=== PATIENT | female | born 1970 | race Caucasian/White ===

== ENCOUNTER 2017-02-09 11:00 | Emergency (ER) | payer OTHER ==
--- NOTE | ~2017-02-09 | CR72 ---
[facility] A Service of [facility] RADIOLOGY TEXT RESULTS PATIENT: RENA LOPEZ LOCATION: [facility] : 70 UNIT #: [id number] AGE: [address]: Gisell Garcia MD SEX: F ORDER DR: [id number] [facility] [address] [place], [place] [address] [id number] E MR#: [id number] Acc #: [id number] NAME: RENA LOPEZ : 1970 SEX: F STUDY DATE/TIME: 02/09/2017 15:40 UNIT: [facility] ROOM: STUDY DESCRIPTION: CR Chest Single View Portable Attending Physician: Gisell Garcia M.D. Ordering Physician: Johnathon Candelario D.O. Primary Care Physician: Gwendolyn Segundo A.P.R.N. MEDICAL IMAGING REPORT This report is preliminary unless electronic signature is present EXAM Portable chest INDICTION Shortness of air for the past 3 days. PROCEDURE Frontal view chest COMPARISON None FINDINGS Moderate cardiomegaly. No dense consolidation. No pleural fluid or pneumothorax. IMPRESSION 1. Cardiomegaly. 2. No dense consolidation. Dictated by... Cedric Vega M.D. THIS IS AN ELECTRONICALLY VERIFIED REPORT Cedric Vega M.D. at 02/11/2017 7:14 AM EED/ruddy TD: 02/10/2017 07:40 JOB #: [id number] MEDICAL IMAGING REPORT [facility] A Service of [facility] RADIOLOGY TEXT RESULTS PATIENT: RENA LOPEZ LOCATION: [facility] : 70 UNIT #: [id number] AGE: [address]: Gisell Garcia MD SEX: F ORDER DR: Page 1 of 1 COPY
--- NOTE | ~2017-02-09 | US84 ---
[id number] [facility] [address] [place], [place] [address] [id number] E MR#: [id number] Acc #: [id number] NAME: RENA LOPEZ : 1970 SEX: F STUDY DATE/TIME: 02/09/2017 13:51 UNIT: [facility] ROOM: STUDY DESCRIPTION: US LE Veins Complete Jon Stdy Attending Physician: Gisell Garcia M.D. Ordering Physician: Johnathon Candelario D.O. Primary Care Physician: Gwendolyn Segundo A.P.R.N. MEDICAL IMAGING REPORT This report is preliminary unless electronic signature is present EXAM Bilateral lower extremity venous duplex 02/09/2017 HISTORY Bilateral lower extremity edema for 3 days. Evaluate for deep vein thrombosis. TECHNIQUE Venous ultrasound examination of both lower extremities was performed using grayscale, spectral Doppler and color flow Doppler imaging. FINDINGS The examination is negative. There is no evidence of deep venous thrombus from the groin to the lower calf bilaterally. Visualized greater saphenous veins are also patent. IMPRESSION Negative examination. No evidence of lower extremity deep venous thrombosis. Dictated by... Reji Llamas M.D. THIS IS AN ELECTRONICALLY VERIFIED REPORT Reji Llamas M.D. at 02/10/2017 2:10 PM KRT/to TD: 02/09/2017 20:40 JOB #: [id number] MEDICAL IMAGING REPORT Page 1 of 1 COPY
--- NOTE | ~2017-02-09 | EKG ---
PATIENT: RENA LOPEZ UNIT #: [id number] Ventricular Rate: 76 BPM Atrial Rate: 76 BPM P-R Interval: 174 ms QRS Duration: 86 ms Q-T Interval: 414 ms QTC Calculation(Bezet): 465 ms P Dunmor: 55 degrees Calculated R Dunmor: 14 degrees Calculated T Dunmor: 19 degrees Diagnosis Line: Normal sinus rhythm Diagnosis Line: Normal ECG Diagnosis Line: No previous ECGs available Diagnosis Line: Confirmed by MERLYN HINDS MD ([id number]) on Diagnosis Line: 02/10/2017 11:10:33 AM INTERPRETING MD: LIZET SOLIZ
[~2017-02-09 11:00] MED LIST: AMARYL PO; FLEXERIL10 MG PO; LANTUS100 U/ML SUBQ; LIDODERM30 EA TOP; LIPITOR40 MG PO; PROPRANOLOL HCL10 M1 PO; VICODIN ES 7.51 EAC1 PO
[2017-02-09 13:44] LABS: BASOPHIL# 0.1 X10e3 (0-0.3); BASOPHIL% 0.6 % (0-2.5); EOSINOPHIL# 0.1 X10e3 (0-0.7); EOSINOPHIL% 1.5 % (0.0-7.0); HEMOGLOBIN 14.7 gm/dL (12.0-16.0); LYMPHOCYTE# 2.4 X10e3 (1.0-3.5); LYMPHOCYTE% 27.1 % (17.0-45.0); MEAN CORPUSCULAR HEMOGLOBIN 29.7 PG (28-34); MEAN CORPUSCULAR HGB CONC 34.1 g/dL (30-36); MEAN PLATELET VOLUME 7.2 FL (6.5-11.5); MONOCYTE# 0.4 X10e3 (0-1.0); MONOCYTE% 4.4 % (3.0-12.0); NEUTROPHIL# 5.9 X10e3 (1.5-7.1); NEUTROPHIL% 66.4 % (40-75); PLATELET COUNT 219 X10e3 (140-420); RED BLOOD COUNT 4.94 X10e (3.90-5.30); RED CELL DISTRIBUTION WIDTH 13.1 % (11.0-15.5); WHITE BLOOD COUNT 8.9 X10e3 (4.0-10.5)
[2017-02-09 13:45] LABS: DIFF IND NO
[2017-02-09 13:46] LABS: POC - CKMB <1.0 ng/mL (0.0-7.9); POC - TROPONIN <0.05 ng/mL (<=0.05)
[2017-02-09 14:13] LABS: ALBUMIN SERUM 3.8 g/dL (3.5-5.0); BILIRUBIN, DIRECT 0.1 mg/dL (0.0-0.2); BILIRUBIN,INDIRECT 0.6 mg/dL (0.0-0.9); BILIRUBIN,TOTAL 0.7 mg/dL (0.2-2.0); CALCIUM SERUM 8.4 mg/dL (8.4-10.2); CREATININE SERUM 0.6 mg/dL (0.6-1.4); GLOM FILT RATE Estimated 109.3 mL/min (>60); POTASSIUM 3.5 mmol/L (3.5-5.1); PROTEIN TOTAL SERUM 6.7 g/dL (6.0-8.3)
[2017-02-09 16:02] LABS: POC - CKMB <1.0 ng/mL (0.0-7.9); POC - TROPONIN <0.05 ng/mL (<=0.05)
== END 2017-02-09 17:20 | disposition home or self-care (01) ==
LOC: CED 11:00
PROVIDERS: Emergency Medicine
DX: R60.0 Localized edema (principal); E11.9 Type 2 diabetes mellitus without complications; F17.200 Nicotine dependence, unspecified, uncomplicated; Z90.49 Acquired absence of other specified parts of digestive tract
CPT/HCPCS: 36415; 71010; 80048; 80076; 82553; 82947; 83880; 84484; 85025; 85379; 93005; 93970; 99284